=== PATIENT | female | born 1975 | race African-American/Black ===

== ENCOUNTER → 2025-01-11 | Outpatient (REF) | payer OTHER ==
[~2025-01-11] MED LIST: CITALOPRAM HBR20 MG PO; ELDERBERRY350 MG PO; ESTRADIOL1 MG PO; LISINOPRIL40 MG PO; PHENTERMINE H37.5 MG PO; VENTOLIN HFA18 GM INH; WEGOVY0.5 MG/0.5 SQ
== END ==
LOC: RAD 13:00 → EDSTATUS 01-17 10:30
PROVIDERS: ATTEND Internal Medicine Gastroenterology
DX: Z01.818 Encounter for other preprocedural examination (principal); Z12.11 Encounter for screening for malignant neoplasm of colon; K21.9 Gastro-esophageal reflux disease without esophagitis
CPT/HCPCS: 93005

== ENCOUNTER → 2025-03-21 | Day surgery (SDC) | payer OTHER ==
[~2025-03-21] MED LIST changes: +LIDOCAINE HCL 2% LOCAL INJ 5 ML SDV VIAL INJ ONE; +PROPOFOL IV EMULSION 10 MG/ML 20 ML VIAL ONE; +PROPOFOL IV EMULSION 50 ML IV ONE
[2025-03-21] MEDS: LACTATED RINGER'S 1,000 ML ONE (11:21)
[2025-03-21 14:36] VITALS: TEMP 98.8
[2025-03-21 14:50] VITALS: BP 138/73; PULSE 70; RESP 16; O2SAT 95
== END | disposition home or self-care (01) ==
LOC: OR 10:34
PROVIDERS: ATTEND Internal Medicine Gastroenterology
DX: K29.50 Unspecified chronic gastritis without bleeding (principal); K21.9 Gastro-esophageal reflux disease without esophagitis; K44.9 Diaphragmatic hernia without obstruction or gangrene; K31.89 Other diseases of stomach and duodenum; K59.00 Constipation, unspecified; K64.8 Other hemorrhoids; I10 Essential (primary) hypertension; Z79.1 Long term (current) use of non-steroidal anti-inflammatories (NSAID); F41.8 Other specified anxiety disorders; E66.01 Morbid (severe) obesity due to excess calories; Z68.43 Body mass index [BMI] 50.0-59.9, adult; D64.9 Anemia, unspecified; M19.91 Primary osteoarthritis, unspecified site; G89.29 Other chronic pain; Z86.16 Personal history of COVID-19; Z79.899 Other long term (current) drug therapy
CPT/HCPCS: 43239; 45378; J2003; J2704 ×2; J7121